=== PATIENT | male | born 1950 | race Caucasian/White ===

== ENCOUNTER 2019-06-30 08:29 | Outpatient (CLI) | payer OTHER ==
--- NOTE | 2019-07-02 14:13 | Ultrasound Report ---
Reason: HX OF TOBACCO USE Procedure Date: 06/30/2019 Accession Number: [id number] / [id number] Procedure: US - Aorta Screening CPT Code: FULL RESULT: EXAM: AORTIC DOPPLER ULTRASOUND EXAM DATE: 06/30/2019 08:45 AM. CLINICAL HISTORY: HX OF TOBACCO USE. COMPARISON: None. TECHNIQUE: Real-time sonographic imaging of retroperitoneal vascular structures, including color-flow, Doppler flow and spectral analysis was performed by the ocularist. Multiple unit support representative static images were saved for review. FINDINGS: Aorta: The abdominal aorta was adequately visualized. No evidence for abdominal aortic aneurysm. Atheromatous plaques are noted. Aorta: Proximal: Sagittal AP 1.8 cm. Mid: Transverse 2.2 x 2.2 cm. Distal: Transverse 1.8 x 1.7 cm. Caliber: WNL: Yes. Plaque visualized: Yes, right iliac. Iliacs: Right Iliac: Transverse 1.1 x 1.3 cm. Left Iliac: Transverse 1.1 x 1.4 cm. Iliac Vessels: The visualized proximal common iliac arteries are normal in caliber. Other: None. IMPRESSION: No abdominal aortic aneurysm. RADIA
== END 2019-06-30 08:30 | disposition home or self-care (01) ==
LOC: DI 08:29
PROVIDERS: ATTEND Nurse Practitioner
DX: Z13.6 Encounter for screening for cardiovascular disorders (principal); Z87.891 Personal history of nicotine dependence
CPT/HCPCS: 76706

== ENCOUNTER 2019-07-14 10:46 | Outpatient (CLI) | payer OTHER ==
--- NOTE | 2019-07-17 05:04 | CT Report ---
Reason: TOBACCO USE HX Procedure Date: 07/14/2019 Accession Number: [id number] / [id number] Procedure: CT - Low Dose Lung Cancer Screen CPT Code: Final Report FULL RESULT: EXAM CT LUNG SCREEN EXAM DATE: 07/14/2019 11:23 AM HISTORY: 69-year-old patient with smoking history. Screening examination. COMPARISON: None. TECHNIQUE: CT examination of the entire thorax without contrast was performed using low-dose technique. Thin section coronal, axial, sagittal and MIP axial images were obtained. In accordance with CT protocol optimization, one or more of the following dose reduction techniques were utilized for this exam: automated exposure control, adjustment of mA and/or KV based on patient size, or use of iterative reconstructive technique. FINDINGS: Nodules: Right upper lobe: 5.8 x 5.5 mm solid nodule (image 21 series 3). Adjacent small calcified granuloma. Right middle lobe: None. Right lower lobe: None. Left upper lobe: None. Left lower lobe: None. Emphysema: None. Pleura: Unremarkable. Aorta: Unremarkable. Mediastinum: Unremarkable. Coronary calcifications: Severe. Other pulmonary findings: None. Other extrapulmonary findings: None. IMPRESSION: 1. Lung-RADS ASSESSMENT CATEGORY: 2 - benign appearance. Probability of malignancy: Less than 1%. RECOMMENDATION: Continue annual low-dose CT screening. 2. Prior granulomatous disease with at least 2 right lung calcified granulomata. 3. Severe coronary vascular calcifications. RADIA
== END 2019-07-14 10:47 | disposition home or self-care (01) ==
LOC: DI 10:46
PROVIDERS: ATTEND Nurse Practitioner
DX: Z12.2 Encounter for screening for malignant neoplasm of respiratory organs (principal); Z87.891 Personal history of nicotine dependence; I25.10 Atherosclerotic heart disease of native coronary artery without angina pectoris; J84.10 Pulmonary fibrosis, unspecified

== ENCOUNTER 2020-12-13 09:09 | Outpatient (CLI) | payer OTHER ==
--- NOTE | 2020-12-13 10:33 | CT Report ---
PROCEDURE: Low Dose Lung Cancer Screen INDICATIONS: PULMONARY NODULE TECHNIQUE: Noncontrast low-dose 5 mm thick sections acquired from the pulmonary apices to the posterior costophr enic angles. 7 mm thick coronal and sagittal MIP reformats were then acquired. For radiation dose r eduction, the following was used: automated exposure control, adjustment of mA and/or kV according t o patient size. COMPARISON: CT lung cancer screening 07/14/2019. FINDINGS: Image quality: Excellent. Lungs and pleura: -Right upper lobe 0.4 cm, (4/99), previously 0.5 cm. -Right lower lobe 0.4 cm, (4/191), previously 0.4 cm. A few additional pulmonary nodules measuring 3 mm or less. No pulmonary mass. Several small calcified granuloma. Mild basilar atelectasis. No significant acute airspace opacity. The central airways are clear. No pleural effusion. No pneumothorax. Mediastinum: Heart size is within normal limits. Three-vessel coronary artery calcifications. No per icardial effusion. No mediastinal adenopathy by size criteria. Thoracic aorta and central pulmonary arteries are normal in size. Esophagus is normal in caliber. No hiatal hernia. Bones and chest wall: No suspicious bony lesions. Probable prior right lateral rib fractures. Prior L2 vertebroplasty. No acute compression fracture. No axillary or supraclavicular adenopathy by size c riteria. Thyroid is unremarkable. Abdomen: Visualized upper abdomen solid organs and bowel loops appear normal in the absence of contr ast. IMPRESSION: 1. Small pulmonary nodules measuring 0.4 cm are stable since 2019. Lung RADS 2. -Recommend follow-up CT lung cancer screening in 12 months. 2. Calcified granuloma. 3. Three-vessel coronary artery calcifications. Reviewed by: Geraldo Ho MD on 12/13/2020 10:31 AM PDT Approved by: Geraldo Ho MD on 12/13/2020 10:31 AM PDT Station ID: [id number]
== END 2020-12-13 09:10 | disposition home or self-care (01) ==
LOC: DI 09:09
PROVIDERS: ATTEND Nurse Practitioner
DX: Z12.2 Encounter for screening for malignant neoplasm of respiratory organs (principal); R91.8 Other nonspecific abnormal finding of lung field; J84.10 Pulmonary fibrosis, unspecified; Z72.0 Tobacco use

== ENCOUNTER 2021-02-26 13:06 | Emergency (ER) | payer OTHER ==
[2021-02-26 13:30] VITALS: BP 99/72
--- NOTE | 2021-02-26 13:37 | ED Physician Documentation ---
PD HPI MALE - Stated complaint Stated Complaint: MALE - Chief complaint Chief Complaint: UTI - History obtained from History obtained from: Patient - History of Present Illness Timing - onset: How many days ago (2-3) Timing - duration: Days Timing - details: Gradual onset, Waxing and waning Associated symptoms: Dysuria, Urinary frequency. No: Discharge PD HPI MALE CONTRIB FACTORS: No: Exposed to STD Similar symptoms before: Has not had sx before Recently seen: Not recently seen Review of Systems Constitutional: denies: Fever, Chills GI: denies: Abdominal Pain, Constipation : reports: Dysuria, Frequency Musculoskeletal: denies: Back pain PD PAST MEDICAL HISTORY - Past Medical History Past Medical History: No - Present Medications Home Medications: Ambulatory Orders Medication Instructions Recorded Confirmed Sulfamethox/Trimeth 800/160 1 each PO BID #14 tablet 02/26/21 [Bactrim Ds 800/160] - Allergies Allergies/Adverse Reactions: Allergies Allergy/AdvReac Type Severity Reaction Status Date / Time No Known Drug Allergies Allergy Verified 02/26/21 13:30 PD ED PE NORMAL - Vitals Vital signs reviewed: Yes - General General: Alert and oriented X 3, No acute distress, Well developed/nourished - Abdomen Abdomen: Soft, Non tender - Male Male : Deferred - Back Back: No: No CVA TTP - Derm Derm: Normal color, Warm and dry Results - Vitals Vitals: Vital Signs - 24 hr 02/26/21 13:27 Temperature 35.2 C L Heart Rate 91 Respiratory 16 Rate Blood Pressure 99/72 O2 Saturation 97 Oxygen O2 Source Room air - Labs Labs: Microbiology 02/26/21 13:37 Urine Culture - Preliminary Urine,Clean Catch CULTURE IN PROGRESS. RESULTS TO FOLLOW. Laboratory Tests 02/26/21 13:37 Urine Color YELLOW Urine Clarity CLOUDY Urine pH 6.0 Ur Specific [place] >=1.030 H Urine Protein 100 H Urine Glucose (UA) NEGATIVE Urine Ketones NEGATIVE Urine Occult Blood LARGE H Urine Nitrite NEGATIVE Urine Bilirubin NEGATIVE Urine Urobilinogen 0.2 (NORMAL) Ur Leukocyte Esterase LARGE H Urine RBC 6-10 H Urine WBC >25 H Ur Squamous Epith Cells RARE Squamous Urine Bacteria Moderate H Ur Microscopic Review INDICATED Urine Culture Comments INDICATED PD MEDICAL DECISION MAKING - ED course Complexity details: considered differential (symptoms c/w UTI; UA positive. ), d/w patient Departure - Departure Disposition: 01 Home, Self Care Clinical Impression: Dysuria UTI (urinary tract infection) Qualifiers: Urinary tract infection type: acute cystitis Hematuria presence: without hematuria Qualified Code(s): N30.00 - Acute cystitis without hematuria Condition: Stable Record reviewed to determine appropriate education?: Yes Instructions: ED UTI Cystitis Male Follow-Up: ANGELO MARINELLI ARNP [Primary Care Provider] - Prescriptions: Sulfamethox/Trimeth 800/160 [Bactrim Ds 800/160] 1 each PO BID #14 tablet Comments: Your urine test is consistent with a urinary tract infection along with your symptoms. We will treat this with Bactrim DS antibiotic twice daily for a week. I would anticipate improvement over the next 2 to 3 days. Stay well-hydrated. Tylenol or ibuprofen if needed for discomfort. Discharge Date/Time: 02/26/21 14:18
[2021-02-26 13:58] LABS: BILIRUBIN,URINE NEGATIVE (NEGATIVE); GLUCOSE, URINE (UA) NEGATIVE (NEGATIVE); KETONES,URINE (UA) NEGATIVE (NEGATIVE); LEUKOCYTE ESTERASE, URINE LARGE (NEGATIVE); NITRITE,URINE NEGATIVE (NEGATIVE); OCCULT BLOOD,URINE LARGE (NEGATIVE); PROTEIN,URINE 100 mg/dL (NEGATIVE); UROBILINOGEN,URINE 0.2 (NORMAL) E.U./dL (NORMAL)
[2021-02-26 14:00] LABS: CLARITY,URINE CLOUDY (CLEAR)
[2021-02-26] MEDS ORDERED: SULFAMETH/TRIMETH DS 800/160 MG TABLET PO STA (14:03)
[2021-02-26 14:14] LABS: BACTERIA,URINE Moderate /HPF (None Seen); SQUAMOUS EPITHELIAL CELL,UR RARE Squamous (<= Few); WBC,URINE >25 /HPF (0-3)
== END 2021-02-26 14:18 | disposition home or self-care (01) ==
LOC: ED 13:06
DX: N30.00 Acute cystitis without hematuria (principal)
CPT/HCPCS: 81001; 87077; 87086; 87181; 99283; A9270; 81003

== ENCOUNTER 2022-12-17 08:39 | Emergency (ER) | payer OTHER ==
[2022-12-17 09:14] VITALS: BP 117/67
[2022-12-17 09:19] LABS: BILIRUBIN,URINE NEGATIVE (NEGATIVE); GLUCOSE, URINE (UA) NEGATIVE (NEGATIVE); KETONES,URINE (UA) NEGATIVE (NEGATIVE); LEUKOCYTE ESTERASE, URINE MODERATE (NEGATIVE); NITRITE,URINE POSITIVE (NEGATIVE); OCCULT BLOOD,URINE LARGE (NEGATIVE); PROTEIN,URINE 100 mg/dL (NEGATIVE); UROBILINOGEN,URINE 0.2 (NORMAL) E.U./dL (NORMAL)
[2022-12-17 09:21] LABS: CLARITY,URINE CLOUDY (CLEAR)
[2022-12-17 09:47] LABS: BACTERIA,URINE Few /HPF (None Seen); SQUAMOUS EPITHELIAL CELL,UR NONE SEEN (<= Few); WBC,URINE >25 /HPF (0-3)
[2022-12-17 10:22] LABS: BASOPHILS % (AUTO) 0.3 %; EOSINOPHILS # (AUTO) 0.1 10^3/uL (0.0-0.7); EOSINOPHILS % (AUTO) 0.6 %; HCT - HEMATOCRIT 46.6 % (42.0-52.0); HGB - HEMOGLOBIN 15.7 g/dL (14.0-18.0); LYMPHOCYTES # (AUTO) 1.3 10^3/uL (1.5-3.5); LYMPHOCYTES % (AUTO) 11.1 %; MEAN CORPUSCULAR HEMOGLOBIN 33.3 pg (27.0-31.0); MEAN CORPUSCULAR HGB CONC 33.7 g/dL (32.0-36.0); MEAN CORPUSCULAR VOLUME 98.9 fL (80.0-94.0); MEAN PLATELET VOLUME 8.4 fL (7.4-11.4); MONOCYTES # (AUTO) 0.6 10^3/uL (0.0-1.0); MONOCYTES % (AUTO) 5.2 %; NEUTROPHILS # (AUTO) 9.9 10^3/uL (1.5-6.6); NEUTROPHILS % (AUTO) 82.4 %; PLT - PLATELET COUNT 204 10^3/uL (130-450); RED BLOOD COUNT 4.71 10^6/uL (4.70-6.10); RED CELL DISTRIBUTION WIDTH 12.4 % (12.0-15.0)
[2022-12-17 10:31] LABS: CALCIUM 9.1 mg/dL (8.5-10.3); CREATININE 1.2 mg/dL (0.6-1.2); POTASSIUM 4.4 mmol/L (3.5-5.0)
--- NOTE | 2022-12-17 10:41 | ED Physician Documentation ---
PD HPI MALE - Stated complaint Stated Complaint: BLADDER DISCOMFORT - Chief complaint Chief Complaint: UTI - History obtained from History obtained from: Patient - History of Present Illness Timing - onset: How many days ago (2-3) Timing - duration: Days Timing - details: Gradual onset, Still present Associated symptoms: Dysuria, Urinary frequency. No: Unable to urinate, Discharge, Genital sore / lesion Similar symptoms before: Diagnosis (similar to aprior uTi years ago) Recently seen: Not recently seen Review of Systems Constitutional: denies: Fever, Chills GI: denies: Abdominal Pain, Nausea, Vomiting Musculoskeletal: denies: Back pain PD PAST MEDICAL HISTORY - Present Medications Home Medications: Ambulatory Orders Medication Instructions Recorded Confirmed Sulfamethox/Trimeth 800/160 1 each PO BID #14 tablet 02/26/21 [Bactrim Ds 800/160] cephALEXin [Keflex] 500 mg PO TID #20 cap 12/17/22 - Allergies Allergies/Adverse Reactions: Allergies Allergy/AdvReac Type Severity Reaction Status Date / Time No Known Drug Allergies Allergy Verified 12/17/22 09:14 PD ED PE NORMAL - Vitals Vital signs reviewed: Yes - General General: Alert and oriented X 3, No acute distress, Well developed/nourished - Abdomen Abdomen: Soft, Non tender - Back Back: No CVA TTP - Derm Derm: Normal color, Warm and dry Results - Vitals Vitals: Oxygen O2 Source Room air - Labs Labs: Microbiology 12/17/22 09:05 Urine Culture - Final Urine,Random Coag Negative Staphylococcus Laboratory Tests 12/17/22 12/17/22 12/17/22 09:05 10:18 10:18 WBC 12.0 H RBC 4.71 Hgb 15.7 Hct 46.6 MCV 98.9 H MCH 33.3 H MCHC 33.7 RDW 12.4 Plt Count 204 MPV 8.4 Neut # (Auto) 9.9 H Lymph # (Auto) 1.3 L Blount # (Auto) 0.6 Eos # (Auto) 0.1 Baso # (Auto) 0.0 Absolute Nucleated RBC 0.00 Nucleated RBC % 0.0 Sodium 138 Potassium 4.4 Chloride 105 Carbon Dioxide 26 Anion Gap 7.0 BUN 16 Creatinine 1.2 Estimated GFR (MDRD) 59 L Glucose 112 H Calcium 9.1 Urine Color DARK YELLOW Urine Clarity CLOUDY Urine pH 6.0 Ur Specific [place] >=1.030 H Urine Protein 100 H Urine Glucose (UA) NEGATIVE Urine Ketones NEGATIVE Urine Occult Blood LARGE H Urine Nitrite POSITIVE H Urine Bilirubin NEGATIVE Urine Urobilinogen 0.2 (NORMAL) Ur Leukocyte Esterase MODERATE H Urine RBC 11-25 H Urine WBC >25 H Ur Squamous Epith Cells NONE SEEN Urine Bacteria Few Ur Microscopic Review INDICATED Urine Culture Comments INDICATED PD Medical Decision Making - ED course Complexity details: reviewed results, considered differential, d/w patient, d/w family () Reviewed Lab Results: his ua is certainly positive for UTI. WBC 12K c/w infection. He does not have symptoms to suggest pyelonephritis. Departure - Departure Disposition: 01 Home, Self Care Clinical Impression: UTI (urinary tract infection) Condition: Stable Record reviewed to determine appropriate education?: Yes Instructions: ED UTI Cystitis Male Prescriptions: cephALEXin [Keflex] 500 mg PO TID #20 cap Comments: Your urine sample does show signs of infection consistent with your symptoms. Your kidney function is normal. Your white cell count on your blood count is elevated consistent with infection. The hemoglobin heart is normal. At this point I think we can treat with antibiotic and see if you just get better. Cephalexin 3 times daily for a week. I sent your prescription to [facility]. Regarding your watery/itchy eyes, you can continue with the fluticasone nasal spray. Additionally or instead you could use antihistamine eyedrops periodically. The main ingredient I antihistamine is ketotifen and comes in the generic of that or is the main ingredient in for example Visinea. But that would be the ingredient to look for. Alternatively you could also use an oral antihistamine such as cetirizine/Zyrtec as needed or daily. Regarding the bladder infection, recheck if not better over the next several days and return sooner if you have fever, vomiting, kidney pain, other concerns. Discharge Date/Time: 12/17/22 11:02
[2022-12-17] MEDS ORDERED: cephALEXin 250 MG CAPSULE PO STA (10:54)
== END 2022-12-17 11:02 | disposition home or self-care (01) ==
LOC: ED 08:39
DX: N39.0 Urinary tract infection, site not specified (principal)
CPT/HCPCS: 36415; 80048; 81001; 85025; 87086; 99283; A9270; 81003

== ENCOUNTER 2023-01-17 08:44 | Emergency (ER) | payer OTHER ==
[2023-01-17 09:05] VITALS: BP 122/100
[2023-01-17 09:18] LABS: BILIRUBIN,URINE NEGATIVE (NEGATIVE); GLUCOSE, URINE (UA) NEGATIVE (NEGATIVE); KETONES,URINE (UA) NEGATIVE (NEGATIVE); LEUKOCYTE ESTERASE, URINE LARGE (NEGATIVE); NITRITE,URINE POSITIVE (NEGATIVE); OCCULT BLOOD,URINE LARGE (NEGATIVE); PH,URINE 6.5 PH (5.0-7.5); PROTEIN,URINE >=300 mg/dL (NEGATIVE); UROBILINOGEN,URINE 1 (NORMAL) E.U./dL (NORMAL)
[2023-01-17 09:21] LABS: CLARITY,URINE CLOUDY (CLEAR)
[2023-01-17 09:29] LABS: BACTERIA,URINE Moderate /HPF (None Seen); SQUAMOUS EPITHELIAL CELL,UR NONE SEEN (<= Few); WBC,URINE >25 /HPF (0-3)
[2023-01-17] MEDS ORDERED: CIPROFLOXACIN 250 MG TABLET PO STA (10:45)
--- NOTE | 2023-01-17 10:46 | ED Physician Documentation ---
History of Present Illness - Stated complaint Stated Complaint: MALE - Chief complaint Chief Complaint: UTI - History obtained from History obtained from: Patient - Additonal information Additional information: The patient comes to the emergency department with chief complaint of urinary frequency and suprapubic discomfort. He was just treated with an antibiotic course for UTI a couple of weeks ago but states the course was only 4 days long. He began having symptoms again a few days ago and is gotten worse and worse. No fevers, chills, nausea, or vomiting. PD PAST MEDICAL HISTORY - Past Medical History Past Medical History: Yes - Present Medications Home Medications: Ambulatory Orders Medication Instructions Recorded Confirmed Sulfamethox/Trimeth 800/160 1 each PO BID #14 tablet 02/26/21 [Bactrim Ds 800/160] cephALEXin [Keflex] 500 mg PO TID #20 cap 12/17/22 Ciprofloxacin HCl [Cipro] 500 mg PO BID #14 tablet 01/17/23 - Allergies Allergies/Adverse Reactions: Allergies Allergy/AdvReac Type Severity Reaction Status Date / Time No Known Drug Allergies Allergy Verified 12/17/22 09:14 - Social History Does the pt smoke?: No Smoking Status: Never smoker PD ED PE NORMAL - Vitals Vital signs reviewed: Yes - General General: Alert and oriented X 3, No acute distress - HEENT HEENT: Atraumatic, PERRL, EOMI, Moist mucous membranes - Neck Neck: Supple, no meningeal sign - Cardiac Cardiac: RRR, No murmur - Respiratory Respiratory: No respiratory distress - Abdomen Abdomen: Soft, Non tender, Non distended - Derm Derm: Warm and dry - Extremities Extremities: No deformity - Neuro Neuro: Alert and oriented X 3 - Psych Psych: Normal mood, Normal affect Results - Vitals Vitals: Vital Signs - 24 hr 01/17/23 09:02 Temperature 36.6 C Heart Rate 86 Respiratory 16 Rate Blood Pressure 122/100 H O2 Saturation 96 Oxygen O2 Source Room air - Labs Labs: Laboratory Tests 01/17/23 09:07 Urine Color YELLOW Urine Clarity CLOUDY Urine pH 6.5 Ur Specific [place] >=1.030 H Urine Protein >=300 H Urine Glucose (UA) NEGATIVE Urine Ketones NEGATIVE Urine Occult Blood LARGE H Urine Nitrite POSITIVE H Urine Bilirubin NEGATIVE Urine Urobilinogen 1 (NORMAL) Ur Leukocyte Esterase LARGE H Urine RBC 11-25 H Urine WBC >25 H Ur Squamous Epith Cells NONE SEEN Urine Bacteria Moderate H Ur Microscopic Review INDICATED Urine Culture Comments INDICATED PD Medical Decision Making - ED course Complexity details: reviewed results, re-evaluated patient, considered differential, d/w patient ED course: The patient's urinalysis was positive for infection. He was started on ciprofloxacin here in the emergency department and a prescription for the same was sent to the pharmacy of his choice. Departure - Departure Disposition: Home, Self Care Clinical Impression: UTI (urinary tract infection) Qualifiers: Urinary tract infection type: acute cystitis Hematuria presence: without hematuria Qualified Code(s): N30.00 - Acute cystitis without hematuria Condition: Stable Instructions: ED UTI Cystitis Male Prescriptions: Ciprofloxacin HCl [Cipro] 500 mg PO BID #14 tablet Comments: A prescription for a weeks worth of antibiotic has been electronically transmitted to the [facility] in [place]. Your sensitivities from your last urine culture have been reviewed and the antibiotic that has been selected was shown to be effective against the bacteria that you recently had in your urine. This is also a good antibiotic choice for many other bacteria that causes UTI, as well. Please take the antibiotics every day, twice daily as directed, until the course is complete.
== END 2023-01-17 10:52 | disposition home or self-care (01) ==
LOC: ED 08:44
DX: N30.00 Acute cystitis without hematuria (principal)
CPT/HCPCS: 81001; 87086; 99283; A9270; 81003

== ENCOUNTER 2023-09-22 08:26 | Emergency (ER) | payer OTHER ==
[2023-09-22 08:57] VITALS: BP 101/63; O2SAT 96
[2023-09-22 09:07] LABS: BILIRUBIN,URINE NEGATIVE (NEGATIVE); GLUCOSE, URINE (UA) NEGATIVE (NEGATIVE); KETONES,URINE (UA) NEGATIVE (NEGATIVE); LEUKOCYTE ESTERASE, URINE MODERATE (NEGATIVE); NITRITE,URINE POSITIVE (NEGATIVE); OCCULT BLOOD,URINE LARGE (NEGATIVE); PROTEIN,URINE >=300 mg/dL (NEGATIVE); UROBILINOGEN,URINE 0.2 (NORMAL) E.U./dL (NORMAL)
[2023-09-22 09:09] LABS: CLARITY,URINE CLOUDY (CLEAR)
[2023-09-22 09:30] LABS: BACTERIA,URINE Moderate /HPF (None Seen); SQUAMOUS EPITHELIAL CELL,UR NONE SEEN (<= Few); WBC,URINE >25 /HPF (0-3)
--- NOTE | 2023-09-22 09:36 | ED Physician Documentation ---
PD HPI MALE - Stated complaint Stated Complaint: - Chief complaint Chief Complaint: UTI - History obtained from History obtained from: Patient - Additional information Additional information: Patient is a 73-year-old male presenting for evaluation of UTI symptoms for the past 3 to 4 days. Patient states that since Wednesday or Wednesday he started having frequency with mild dysuria and only urinating small amounts at a time. He reports this feels similar to when he has had UTIs in the past. No fever, abdominal pain, nausea, vomiting or back pain. Does not take anything for his prostate. Does not currently see a urologist. Denies noticing any blood in his urine. Review of Systems Constitutional: denies: Fever GI: denies: Abdominal Pain, Vomiting : reports: Frequency PD PAST MEDICAL HISTORY - Past Medical History Cardiovascular: High cholesterol Endocrine/Autoimmune: HyPOthyroidism - Present Medications Home Medications: Ambulatory Orders Medication Instructions Recorded Confirmed Sulfamethox/Trimeth 800/160 1 each PO BID #14 tablet 02/26/21 [Bactrim Ds 800/160] cephALEXin [Keflex] 500 mg PO TID #20 cap 12/17/22 Ciprofloxacin HCl [Cipro] 500 mg PO BID #14 tablet 01/17/23 Cefuroxime Axetil [Cefuroxime] 500 mg PO BID 7 Days #14 tablet 09/22/23 - Allergies Allergies/Adverse Reactions: Allergies Allergy/AdvReac Type Severity Reaction Status Date / Time No Known Drug Allergies Allergy Verified 12/17/22 09:14 - Social History Does the pt smoke?: No Smoking Status: Never smoker PD ED PE NORMAL - General General: Alert and oriented X 3, No acute distress, Well developed/nourished - HEENT HEENT: Atraumatic, Moist mucous membranes, Pharynx benign - Neck Neck: Supple, no meningeal sign - Cardiac Cardiac: RRR, Strong equal pulses - Respiratory Respiratory: No respiratory distress, Clear bilaterally - Abdomen Abdomen: Normal bowel sounds, Soft, Non tender, Non distended - Derm Derm: Warm and dry Results - Vitals Vitals: Vital Signs - 24 hr 09/22/23 08:35 Temperature 36 C L Heart Rate 80 Respiratory 18 Rate Blood Pressure 101/63 O2 Saturation 96 Oxygen O2 Source Room air - Labs Labs: Laboratory Tests 09/22/23 08:49 Urine Color YELLOW Urine Clarity CLOUDY Urine pH 6.0 Ur Specific [place] 1.025 Urine Protein >=300 H Urine Glucose (UA) NEGATIVE Urine Ketones NEGATIVE Urine Occult Blood LARGE H Urine Nitrite POSITIVE H Urine Bilirubin NEGATIVE Urine Urobilinogen 0.2 (NORMAL) Ur Leukocyte Esterase MODERATE H Urine RBC 11-25 H Urine WBC >25 H Ur Squamous Epith Cells NONE SEEN Urine Bacteria Moderate H Ur Microscopic Review INDICATED Urine Culture Comments INDICATED PD Medical Decision Making - ED course Complexity details: reviewed results, d/w patient ED course: Patient with dysuria and frequency for the past few days. Has a history of UTIs and this feels similar. Abdominal exam is benign. Vital signs are stable. Urine analysis suggest UTI and patient is started on antibiotics. He is counseled regarding plan for treatment as well as concerning symptoms to return for. Departure - Departure Disposition: 01 Home, Self Care Clinical Impression: UTI (urinary tract infection) Condition: Stable Instructions: ED UTI Cystitis Male Prescriptions: Cefuroxime Axetil [Cefuroxime] 500 mg PO BID 7 Days #14 tablet Comments: Your testing today shows that you have a urine infection. The urine is being sent for culture and we will notify you if you need a different antibiotic than the 1 you were prescribed. I have sent an antibiotic prescription to [facility] in [place]. Please make sure to complete the course of the antibiotic. Return to the ER with worsening symptoms such as fever, vomiting, any other concerns. Discharge Date/Time: 09/22/23 09:42
== END 2023-09-22 09:42 | disposition home or self-care (01) ==
LOC: ED 08:26
DX: N39.0 Urinary tract infection, site not specified (principal)
CPT/HCPCS: 81001; 81003; 87077; 87086; 99283

== ENCOUNTER 2024-02-28 11:56 | Outpatient (CLI) | payer OTHER ==
[2024-02-28 12:27] LABS: CREATININE 0.9 mg/dL (0.6-1.3)
--- NOTE | 2024-02-28 14:34 | CT Report ---
PROCEDURE: IVP INDICATIONS: HEMATURIA CONTRAST: Omni 300 140ml TECHNIQUE: A [address] of the abdomen and pelvis was performed. Non-contrast and contrast images were recorded and evaluated at appropriate window settings. Images were recorded and evaluated at appropriate windo w settings. Reformats: coronal and sagittal. For radiation dose reduction, the following was used: au tomated exposure control, adjustment of mA and/or kV according to patient size. COMPARISON: None FINDINGS: Image quality: Diagnostic Lower chest: Mild scarring and atelectasis. Liver: Subcentimeter lesions are too small to characterize, usually cysts. Gallbladder and biliary system: Unremarkable, nondilated Pancreas: No ductal dilation Spleen: Nonenlarged Adrenals: No discrete nodules Kidneys: Mild nonspecific perinephric fat stranding. No calcified stones. No hydronephrosis. No solid renal mass. Cortical scarring is seen at the left lower pole. Subcentimeter lesions are too small to characterize, probably cysts. No suspicious filling defect in the ureters. Vessels and lymph nodes: Main portal vein is patent. No abdominal aortic aneurysm. No pathologic lymp h nodes by size criteria. Bowel and peritoneum: No evidence of small bowel obstruction. No pathologic ascites. No drainable abs cess. Colonic diverticula are seen. The appendix is nondilated Body wall: Asymmetric appearance of the rectus muscles. Small fat-containing umbilical hernia left in guinal hernia. Pelvis: Trabeculated bladder with diverticula. The prostate is heterogeneous and not well eval on thi s study. Bones: No acute or suspicious osseous finding. Degenerative changes are present. Lumbar postsurgical changes. IMPRESSION: No significant upper tract disease. Trabeculated bladder and diverticula, most commonly from chronic obstruction. The prostate is heterog eneous and not well evaluated on this study. The lower tracts could be better evaluated with cystosco py. Consider also PSA correlation. Other findings as above. Reviewed by: Pete Kruse MD on 02/28/2024 2:33 PM PDT Approved by: Pete Kruse MD on 02/28/2024 2:33 PM PDT Station ID: [id number]
[2024-02-28] MEDS: iohexoL-300 150 ML BOTTLE IVP ONE (16:38)
== END 2024-02-28 11:57 | disposition home or self-care (01) ==
LOC: LAB 11:56
PROVIDERS: ATTEND Family Medicine
DX: R31.9 Hematuria, unspecified (principal); Z87.891 Personal history of nicotine dependence; N32.89 Other specified disorders of bladder; N32.3 Diverticulum of bladder
CPT/HCPCS: 36415; 82565

== ENCOUNTER 2024-03-22 08:44 | Emergency (ER) | payer OTHER ==
[2024-03-22 09:30] LABS: BILIRUBIN,URINE NEGATIVE (NEGATIVE); GLUCOSE, URINE (UA) NEGATIVE (NEGATIVE); KETONES,URINE (UA) NEGATIVE (NEGATIVE); LEUKOCYTE ESTERASE, URINE LARGE (NEGATIVE); NITRITE,URINE POSITIVE (NEGATIVE); OCCULT BLOOD,URINE MODERATE (NEGATIVE); PROTEIN,URINE 30 mg/dL (NEGATIVE); UROBILINOGEN,URINE 1 (NORMAL) E.U./dL (NORMAL)
[2024-03-22 09:33] LABS: CLARITY,URINE CLOUDY (CLEAR)
[2024-03-22 09:44] LABS: BACTERIA,URINE Moderate /HPF (None Seen); SQUAMOUS EPITHELIAL CELL,UR NONE SEEN (<= Few); WBC,URINE >25 /HPF (0-3)
--- NOTE | 2024-03-22 10:32 | ED Physician Documentation ---
PD HPI MALE - Stated complaint Stated Complaint: - Chief complaint Chief Complaint: UTI - History obtained from History obtained from: Patient - History of Present Illness Timing - onset: How many days ago (several) Timing - duration: Days (several) Timing - details: Gradual onset, Still present Associated symptoms: Dysuria (mild), Urinary frequency (with cloudy appearing urine, per pt.) Similar symptoms before: Has not had sx before Review of Systems Constitutional: denies: Fever, Chills GI: denies: Abdominal Pain Musculoskeletal: denies: Back pain PD PAST MEDICAL HISTORY - Past Medical History Past Medical History: Yes Cardiovascular: High cholesterol, [place] Endocrine/Autoimmune: HyPOthyroidism - Past Surgical History Past Surgical History: Yes Ortho: Other - Present Medications Home Medications: Ambulatory Orders Medication Instructions Recorded Confirmed Aspirin [[place]] 1 cap PO DAILY 09/30/23 09/30/23 Cholecalciferol [Vitamin D3] 1 tab PO DAILY 09/30/23 09/30/23 Cyanocobalamin (Vitamin B-12) 1 tab PO DAILY 09/30/23 09/30/23 [Vitamin B12] Levothyroxine [Synthroid] 1 tab PO DAILY 09/30/23 09/30/23 Metoprolol Succinate [Toprol Xl] 25 mg PO DAILY #30 tablet 09/30/23 Simvastatin [Zocor] 1 tab PO DAILY 09/30/23 09/30/23 Zolpidem Tartrate [Ambien] 1 tab PO DAILY 09/30/23 09/30/23 Doxycycline Hyclate 100 mg PO BID 7 Days #14 cap 03/22/24 - Allergies Allergies/Adverse Reactions: Allergies Allergy/AdvReac Type Severity Reaction Status Date / Time No Known Drug Allergies Allergy Verified 03/22/24 09:13 - Social History Does the pt smoke?: No Smoking Status: Never smoker Does the pt drink ETOH?: No Does the pt have substance abuse?: No - Immunizations Immunizations are current?: Yes - POLST Patient has POLST: No PD ED PE NORMAL - Vitals Vital signs reviewed: Yes - General General: Alert and oriented X 3, No acute distress, Well developed/nourished - Abdomen Abdomen: Soft, Non tender - Back Back: No CVA TTP - Derm Derm: Normal color, Warm and dry Results - Vitals Vitals: Oxygen O2 Source Room air - Labs Labs: Microbiology 03/22/24 09:15 Urine Culture - Final Urine,Random >100,000 COLONIES/ML Polymicrobial growth including potential pathogens. This is suggestive of skin or other contamination. Laboratory Tests 03/22/24 09:15 Urine Color YELLOW Urine Clarity CLOUDY Urine pH 6.0 Ur Specific [place] 1.025 Urine Protein 30 H Urine Glucose (UA) NEGATIVE Urine Ketones NEGATIVE Urine Occult Blood MODERATE H Urine Nitrite POSITIVE H Urine Bilirubin NEGATIVE Urine Urobilinogen 1 (NORMAL) Ur Leukocyte Esterase LARGE H Urine RBC 11-25 H Urine WBC >25 H Ur Squamous Epith Cells NONE SEEN Urine Bacteria Moderate H Ur Microscopic Review INDICATED Urine Culture Comments INDICATED PD Medical Decision Making - ED course Complexity details: considered differential (sounds like UTI symptoms and the UA has finding c/w it with nitrates, eluks, bacteria.), d/w patient Departure - Departure Disposition: 01 Home, Self Care Clinical Impression: UTI (urinary tract infection), Dysuria Condition: Stable Record reviewed to determine appropriate education?: Yes Instructions: ED UTI Cystitis Male Follow-Up: [facility] [Provider Group] Jn Ortega MD [Provider Admit Priv/Credential] - Prescriptions: Doxycycline Hyclate 100 mg PO BID 7 Days #14 cap Comments: Your last several urine cultures with the urinary infections have grown Staphalococcus or Staph epidermidis. Given that, I would start with the antibiotic called doxycycline. We will get the urine culture back in a couple of days and see if we need to modify based on that but going with the trend of what has caused infections, that should be an appropriate antibiotic. You can also use phenazopyridine to help with some of the urinary discomfort. I would anticipate improvement over the next few days. Follow-up with your provider at the [facility] regarding urology referral or if appropriate based on your insurance, you could try calling urology here in [place] for follow-up for evaluation about the recurring infections. Discharge Date/Time: 03/22/24 11:21
[2024-03-22] MEDS: DOXYCYCLINE 100 MG TABLET PO STA (11:12)
[2024-03-22 11:31] VITALS: BP 126/77; O2SAT 97
== END 2024-03-22 11:21 | disposition home or self-care (01) ==
LOC: ED 08:44
DX: N39.0 Urinary tract infection, site not specified (principal)
CPT/HCPCS: 81001; 87086; 99283; A9270; 81003

== ENCOUNTER 2024-05-25 15:18 | Outpatient (CLI) | payer OTHER ==
--- NOTE | 2024-05-25 18:01 | MRI Report ---
PROCEDURE: Brain WO INDICATIONS: DIZZINESS TECHNIQUE: Noncontrast axial T1 spin echo, axial T2 fast spin echo, sagittal and axial FLAIR, coronal T2 fast sp in echo, axial gradient echo, axial diffusion and ADC through the brain. COMPARISON: None. FINDINGS: Image quality: Excellent. The ventricular system and cortical sulci demonstrate atrophy, consistent for patient's stated age. There are areas of hyperintense T2/FLAIR signal in the periventricular and subcortical white matter. There is no acute intra or extra-axial fluid collection. No acute hemorrhage, mass lesion or midlin e shift. Brainstem is unremarkable. There are no areas of restricted diffusion. Globes are symmetr ical. Sinuses and straight scattered areas of mucosal thickening most prominent in the ethmoid air ce lls. Osseous structures are intact. Fluid is present within the mastoid air cells, right greater than left. Recommend correlation to patient's symptoms of mastoiditis. IMPRESSION: 1. No acute intracranial process. 2. Moderate atrophy and chronic microvascular ischemic changes. Reviewed by: Cristiana Ho MD on 05/25/2024 5:59 PM PDT Approved by: Cristiana Ho MD on 05/25/2024 5:59 PM PDT Station ID: [id number]
== END 2024-05-25 15:19 | disposition home or self-care (01) ==
LOC: DI 15:18
PROVIDERS: ATTEND Nurse Practitioner Primary Care
DX: R42 Dizziness and giddiness (principal)